=== PATIENT | female | born 1990 | race Caucasian/White ===

== ENCOUNTER 2019-03-05 13:51 | Emergency (ER) | payer BC, SELFPAY ==
[2019-03-05 13:52] VITALS: BP 137/75; PULSE 89; RESP 16; TEMP 36.1; O2SAT 96; BMI 32.9
--- NOTE | 2019-03-05 14:09 | CT_ITS ---
STUDY: CT BRAIN WITHOUT CONTRAST REASON FOR EXAM: Female, 28 years old. RADIATION DOSAGE (If Supplied By Facility): CTDIvol = ( 44.99 ) mGy, DLP = ( 745.49 ) mGycm TECHNIQUE: Transaxial CT imaging of the brain was performed without administration of intravenous contrast material. Individualized dose optimization techniques were used for this CT. COMPARISON: No relevant priors. FINDINGS: Normal soft tissue structures. Normal calvarium. Normal size ventricles and extra-axial spaces for the patient's age. Normal white matter tracts of the cerebral hemispheres. Normal basal ganglia and thalami. Normal brainstem. Normal cerebellum. There is no intracranial hemorrhage. There are no findings of an acute ischemic infarction. Normal visualized paranasal sinuses. CT/Brain/Head without Contrast IMPRESSION: Normal unenhanced CT scan of the brain. Electronically Signed: Garrett Norwood, at 14:43 EST Tel , Service support ,
--- NOTE | 2019-03-05 14:09 | EKG12_ITS ---
Test Reason : SYNCOPE Blood Pressure : / mmHG Vent. Rate : 073 BPM Atrial Rate : 073 BPM P-R Int : 170 ms QRS Dur : 088 ms QT Int : 390 ms P-R-T Axes : 030 022 007 degrees QTc Int : 429 ms Normal sinus rhythm Normal ECG Confirmed by DANISH MANZANARES, CALEB ([id number]), rewrite editor STEPHANIE CHOW ([id number]) on 03/07/2019 10:58:39 AM Referred By: SASHA Confirmed By:CALEB PENG MD
--- NOTE | 2019-03-05 14:20 | RAD_ITS ---
STUDY: X-RAY CHEST REASON FOR EXAM: Female, 28 years old. TECHNIQUE: COMPARISON: None. FINDINGS: The lungs are clear and expanded. There is no demonstrated pleural abnormality. Normal size heart. Normal mediastinum and rock. Normal visualized pulmonary arteries. Normal visualized aortic arch and descending thoracic aorta. Normal visualized thoracic spine. Normal visualized ribs, clavicles, and shoulders. There is no demonstrated abnormality of the visualized soft tissue structures of the upper abdomen. RAD/Chest 1 View (Portable) IMPRESSION: Normal x-ray examination of the chest. Electronically Signed: Garrett Norwood, at 14:35 EST Tel , Service support ,
[2019-03-05 14:24] VITALS: O2SAT 99
[2019-03-05 14:27] LABS: Absolute Lymphocyte Count 2.41 X10^3/uL (0.83-4.51); Absolute Neutrophil Count 3.8 X10^3/uL (2.0-7.7); Basophil# 0.07 X10^3/uL; Eosinophil# 0.06 X10^3/uL; Eosinophils% 0.9 % (0-5); Hematocrit 40.3 % (37-47); Hemoglobin 13.1 g/dL (12.0-15.0); Lymphocyte # 2.41 X10^3/ul (4.0); Lymphocyte % 35.2 % (19-41); Mean Corp Hgb Conc 32.5 g/dL (32-36); Mean Corpuscular Hgb 28.2 pg (27.0-32.0); Mean Corpuscular Volume 86.7 fL (81-99); Mean Platelet Vol. 8.7 fl (6.2-12.0); Monocyte# 0.49 X10^3/uL; Monocyte% 7.2 % (0-10); NRBC Flagged by Analyzer 0 % (0-5); Neutrophil # 3.79 X10^3/uL (2.7-7.7); Neutrophil % 55.4 % (47-70); Platelet Count 345 K/mm3 (150-450); RBC Distribution Width CV 12.2 % (11.6-14.6); RBC Distribution Width SD 38.6 fl (35.1-43.9); Red Blood Count 4.65 M/mm3 (4.2-5.4); White Blood Count 6.8 K/mm3 (4.4-11.0)
[2019-03-05 14:47] LABS: Anion Gap 7 (5-15); BUN 7 mg/dL (7-18); BUN/Creat Ratio 10.2 RATIO (10-20); Calcium,Total 8.9 mg/dL (8.5-10.1); Chloride 107 mmol/L (98-107); Creatinine, Serum 0.68 mg/dL (0.55-1.02); EST Glomerular Filtration Rate 110 mL/min (>60); Est Glom Filt Rate - Afr Amer 133 mL/min (>60); Estimated Creatinine Clearance 99.16 ml/min; Glucose 92 mg/dL (74-106); Sodium Level 141 mmol/L (136-145)
[2019-03-05 14:54] LABS: Internal QC Validated? YES +Cl - CLEAR BKGD; Pregnancy, Serum, hCG Quali. NEGATIVE Negative
[2019-03-05 14:57] LABS: Alcohol, Blood (Medical)-Serum < 3.0 mg/dL
--- NOTE | 2019-03-05 15:17 | ED.VISSUMM ---
- ER Visit Summary Date of Service: 03/05/19 Chief Complaint: Seizure History of Present Illness: The patient is a 28 F who presents for a possible seizure. The patient was at work and she felt like she was going to black out. She started shaking and sat down. She remembers waking up in the break room. There is no one here who witnessed the event. She says she has a history of seizures. Her doctor stopped her medicines years ago, and she has not had any issues. She denies any inciting events, except for increased stress recently. She denies any injuries or other associated complications. Physical Examination: Afebrile and vital signs unremarkable. Head and neck atraumatic. Heart regular. Lungs clear. Abdomen soft. Skin appears normal. Cranial nerves grossly intact. Normal strength and sensation. Test Results: EKG showed sinus rhythm at a rate of 73. CBC and BMP unremarkable. Troponin normal. test negative. Alcohol negative. Chest x-ray normal. CT brain normal. Emergency Department Course and Treatment: Patient had no further events in the ED. 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 Work-up was unremarkable. Given that the patient has a history of seizures, and has symptoms similar to her prior seizure, we will put her on seizure precautions and start Keppra twice daily. She believes she might have been on that before. I do not believe she needs further diagnostic testing or hospitalization based on her history and current findings and symptoms. She does not have a neurologist currently. We do not have neurology hearing healthcare practitioner at this time. She was requesting a follow-up in the [facility], and was referred to Dr. Sherice Us at [phone]. Seizure precautions. Work note. Return for any new or worsening issues. Treatment Plan: As above Disposition: Discharge Impression: 1. Seizure This note was generated with [employer] software. It may contain incorrect words, spelling, and punctuation that were not noted in review of the chart prior to signing ED Disposition - Plan for ED Patient: Referrals: Care Physician,No Primary [Primary Care Provider] -
--- NOTE | 2019-03-05 15:21 | DCINST.ED_ITS ---
ED Disposition - Plan for ED Patient: Instructions: SEIZURE, Recurrent [Adult] Prescriptions: Levetiracetam [Keppra] 500 mg PO BID #60 tab Prescription Printed Additional Instructions: Follow-up with Dr. Sherice Us in [facility] call for appointment [phone]. No driving or operating heavy machinery. Do not take part in any activities where you could hurt yourself or others.
[2019-03-05 15:24] LABS: Amphetamine Urine VISTA NEGATIVE (<1000 ng/mL); Barbiturate Urine VISTA NEGATIVE (< 200 ng/mL); Benzodiazepine Urine VISTA NEGATIVE (< 200 ng/mL); Cocaine Urine VISTA NEGATIVE (< 300 ng/mL); Ecstacy Urine VISTA NEGATIVE (< 500 ng/mL); Methadone Urine VISTA NEGATIVE (< 300 ng/mL); PCP Urine VISTA NEGATIVE (< 25 ng/mL); THC Urine VISTA NEGATIVE (< 50 ng/mL); Vista UDS pH Range 7
[2019-03-05 15:33] VITALS: BP 130/90; PULSE 78; RESP 14; O2SAT 98
== END 2019-03-05 15:34 | disposition home or self-care (01) ==
LOC: ED 14:38
PROVIDERS: Emergency Provider Emergency Medicine
DX: R56.9 Unspecified convulsions (principal); R51 Headache; Z72.0 Tobacco use
CPT/HCPCS: 70450; 71045; 80048; 80307; 80320; 84484; 84703; 85025; 93005; 99284; G0480

== ENCOUNTER 2019-05-21 22:03 | Emergency (ER) | payer OTHER, SELFPAY ==
[2019-05-21 22:04] VITALS: BP 142/93; PULSE 89; RESP 16; TEMP 37.2; O2SAT 99; BMI 35.3
--- NOTE | 2019-05-21 22:25 | ED.VISSUMM ---
- ER Visit Summary Date of Service: 05/21/19 Chief Complaint: Seizure History of Present Illness: The patient is a 28 F who presents after having a seizure at work. She felt 1 coming on. She then blacked out does not remember what happened. She has had 2 in the past week and 3 recently. She is on no medications for it at home. She was on medications as a child but none recently. She denies any recent illnesses. She did not eat today but had 2 monster energy drinks today. Currently she feels back to baseline except for a headache. Physical Examination: Vital signs reviewed. HEENT exam unremarkable. Heart is regular rate and rhythm without murmurs. Lungs are clear to auscultation. Abdomen is soft and nontender. Extremities reveal no edema. Skin exam normal. Neurologic exam normal. Test Results: None performed Emergency Department Course and Treatment: The patient feels back to her normal state of health. She has had a couple of seizures this week. I went over seizure precautions including no driving. She tried to contact a neurologist but they did not set her insurance. I reviewed her insurance and was able to find somebody in her network. I gave her the follow-up information for them. Treatment Plan: [] Disposition: Discharge Impression: Seizure This note was generated with [employer] dictation software. It may contain incorrect words, spelling, and punctuation that were not noted in review of the chart prior to signing ED Disposition - Plan for ED Patient: Disposition: Home or Assisted Living Instructions: SEIZURE, Recurrent [Adult] Referrals: [facility] Doctor,Out of [Primary Care Provider] - Farzaneh Asher MD [NON-STAFF] -
[2019-05-21] MEDS: Acetaminophen 500 MG Tablet 1000 MG PO (22:39)
[2019-05-21 22:49] VITALS: RESP 16
== END 2019-05-21 22:49 | disposition home or self-care (01) ==
LOC: ED 22:32
PROVIDERS: Emergency Provider Emergency Medicine; PCP General Practice
DX: R56.9 Unspecified convulsions (principal); R51 Headache; F31.9 Bipolar disorder, unspecified
CPT/HCPCS: 99283

== ENCOUNTER 2019-11-25 19:53 | Emergency (ER) | payer OTHER, SELFPAY ==
[2019-11-25 19:54] VITALS: BP 158/98; PULSE 104; RESP 15; TEMP 36.4; O2SAT 98; BMI 33.9
--- NOTE | 2019-11-25 20:05 | ED.VIS.UPPEX ---
History of Present Illness Chief Complaint: Upper Extremity Injury Informant: Patient Occurred: Today Mechanism/Context: Injury Context: Sudden Onset Timing: Continuous Quality of Pain: Aching Location: R hand, worse at 4th-5th MCPJs Current Severity: Moderate Maximum Severity: Severe Worsened by: trying to move Relieved by: remaining still, ice pack Associated Symptoms: Loss of Funtion - small finger. Negative for: Parasthesia, Weakness Narrative: [id number] female states that she punched a car and had sudden onset pain in her right hand. Past Medical History - Allergies and Home Meds Allergies/Adverse Reactions: Allergies cinnamon Allergy (Verified 11/25/19 19:56) Swelling lidocaine Allergy (Verified 11/25/19 19:56) Other Primary Care Physician: Vale Watts MD [Primary Care Provider] - Past Medical History: None Lives: With Family Smoking Status: Never smoker Review of Systems General: Denies: Chills, Fever, Sweats Musculoskeletal: Reports: Extremity Pain Skin: Denies: Rash, Wounds Neurological: Denies: Headache, Weakness, Numbness Physical Exam Vital Signs/Narrative: Vital Signs Temp Pulse Resp BP Pulse Ox 11/25/19 19:54 97.5 F L 104 H 15 158/98 H 98 General: Well nourished, Well developed, - - Well-appearing no distress Head: Normocephalic, Atraumatic Extremeties: Tender mainly at the right fourth and fifth metacarpophalangeal joints, no deformities, but limited evaluation of rotational deformity of the fifth digit since she is unable to flex it at all. Limited flexion of the fourth but it appears to flex without deformity. Good range of motion throughout everywhere else including wrist. Skin: Trauma - Contusion with erythema focused around the right fourth and fifth MCPJ's. Skin intact. Neurological: Alert, Oriented x3, Cranial nerves II-XII grossly intact, Normal Strength, Normal Sensation, Normal Gait Psychological: Normal affect, Normal Mood Diagnostic/Tx/Re-eval Clinical Impression(s) from Imaging Studies Hand X-Ray 11/25/19 20:07 IMPRESSION: Within normal limits x-ray examination of the hand. Electronically Signed: Fadia Bella MD at 20:31 EDT Tel , Service support , - Medical Decision Making X-rays unremarkable. She was given an Vinod wrap and anti-inflammatory, advised to follow-up as needed if her function does not return to normal. ED Disposition - Plan for ED Patient: Disposition: Home or Assisted Living Diagnosis: Contusion of right hand Instructions: ED HAND CONTUSION Referrals: Vale Watts MD [Primary Care Provider] - 1 Week if not improving
--- NOTE | 2019-11-25 20:07 | RAD_ITS ---
STUDY: X-RAY - RIGHT HAND REASON FOR EXAM: Female, 29 years old. Pain after punching a car, limited range of motion TECHNIQUE: 3 view(s) of the hand. COMPARISON: None. FINDINGS: Normal radiocarpal articulation. Normal distal radioulnar joint. Normal visualized carpal bones. Normal carpal articulations Normal carpometacarpal articulation of the thumb. Normal second through fifth carpometacarpal joints. Normal metacarpi. Normal metacarpophalangeal joint of the thumb. Normal interphalangeal joint of the thumb. Normal proximal and distal phalanges of the thumb. Normal metacarpophalangeal joints of the second through fifth fingers. Normal proximal and distal interphalangeal joints of the second through fifth fingers. Normal phalanges of the second through fifth fingers. The soft tissue structures are unremarkable. RAD/Hand Min 3 Views IMPRESSION: Within normal limits x-ray examination of the hand. Electronically Signed: Fadia Bella MD at 20:31 EDT Tel , Service support ,
[2019-11-25 20:10] VITALS: BP 158/98; PULSE 99; RESP 16; TEMP 36.3; O2SAT 98; BMI 32.8
== END 2019-11-25 21:09 | disposition home or self-care (01) ==
PROVIDERS: Emergency Provider Emergency Medicine; PCP General Practice
DX: S60.221A Contusion of right hand, initial encounter (principal); W22.8XXA Striking against or struck by other objects, initial encounter; Y93.9 Activity, unspecified; Y92.89 Other specified places as the place of occurrence of the external cause; Y99.9 Unspecified external cause status
CPT/HCPCS: 73130; 99282

== ENCOUNTER 2020-01-02 17:30 | Emergency (ER) | payer OTHER, SELFPAY ==
[2020-01-02 17:31] VITALS: BP 135/86; PULSE 80; RESP 16; TEMP 36.4; O2SAT 99; BMI 33.6
--- NOTE | 2020-01-02 18:22 | ED.VIS.GEN ---
History of Present Illness Chief Complaint: Seizure Informant: Patient Narrative: Patient is a 29-year-old female who presents to the emergency department for seizure. She states she has had 3 over the past 4 days. She had a 3 to 5-minute episode today witnessed by her boyfriend. She states that she had a seizure disorder when she was 10. Over the past year she started to have them recur. She does not follow with a neurologist. She is not on any antiepileptic medications. She states that she just cannot take it anymore. She denies any symptoms at this time. No headache or vision changes. No chest pain or shortness of breath. She has any abdominal pain or nausea/vomiting. He states she can feel them coming on and lowered himself to the ground. Denies any injury. She states she can hear during these episodes but cannot ever respond. Boyfriend states she has some generalized shaking and in turn very pale. She is concerned she has a UTI as she was seen here a few weeks ago for abdominal pain and diagnosed with UTI. She never got the antibiotic filled. She is not having any symptoms at this time. She denies any alcohol or drug use. Past Medical History - Allergies and Home Meds Allergies/Adverse Reactions: Allergies cinnamon Allergy (Verified 11/25/19 19:56) Swelling lidocaine Allergy (Verified 11/25/19 19:56) Other epinephrine Adverse Reaction (Verified 01/02/20 17:30) NEEDS FOLLOW-UP Primary Care Physician: Vale Watts MD [Primary Care Provider] - Prior records reviewed: Yes Smoking Status: Never smoker Review of Systems All systems negative except as indicated General: Denies: Chills, Fever, Sweats Eyes: Denies: Visual changes - bilaterally, Diplopia ENT: Denies: Rhinorrhea, Sore throat Cardiovascular: Denies: Chest pain, Palpitations Respiratory: Denies: Dyspnea, Cough, Dyspnea on exertion Gastrointestinal: Denies: Abdominal pain, Nausea, Vomiting, Diarrhea Genitourinary: Denies: Dysuria, Hematuria, Frequency Musculoskeletal: Denies: Back pain, Extremity Pain Skin: Denies: Rash, Wounds Neurological: Denies: Headache, Weakness, Numbness Physical Exam Vital Signs/Narrative: Vital Signs Temp Pulse Resp BP Pulse Ox 01/02/20 17:31 97.6 F L 80 16 135/86 H 99 Inital Vital Signs reviewed: Yes General: Well nourished, Well developed, No Acute Distress Head: Normocephalic, Atraumatic Eyes: Perrl, EOMI ENT: Moist mucous membranes, No rhinorrhea Neck: Supple, Nontender Cardiovascular: Regular rate, Regular rhythm, No murmurs Respiratory: No distress, CTA bilaterally, Chest nontender Abdomen: Soft, Nontender, Nondistended, Normal bowel sounds Back: Nontender, Normal Inspection Extremities: Nontender, No edema Skin: Normal color, No rash Neurological: Alert, Oriented x3, Cranial nerves II-XII grossly intact, Normal Strength, Normal Sensation Psychological: Normal affect, Normal Mood Diagnostic/Tx/Re-eval - Medical Decision Making Patient presents to the ED for seizure disorder. She wants to be restarted on medications but cannot recall what she was on previously. She does not have a neurologist. Physical exam is benign. Vital signs within normal limits. Will check basic lab work at this time. Lab work-up did not reveal a significant acute abnormality. We did do a tele-neurologist consult as she does not have a neurologist currently. They recommend started her on Keppra but she does need a full neurology work-up. She was supposed to have a full work-up previously but she states her insurance did not cover it. Social work did find multiple neurologists in network and she was given a list for follow-up. She states she will follow-up with Dr. Asher. There was some concern that she is having pseudoseizures per the neurologist that did the evaluation. She will need a full EEG. Apparently this can be done as an outpatient now. Warning signs and symptoms which to return to the ED were reviewed with her. She understands that she is not to drive until cleared by the neurologist. At this time patient discharged home in stable condition. ED Disposition - Plan for ED Patient: Disposition: Home or Assisted Living Diagnosis: Seizure disorder Instructions: ED Seizure Recurrent Adult Prescriptions: Levetiracetam [Keppra] 500 mg PO BID 30 Days #60 tab Transmission Status: Received by [id number] [facility] Referrals: Vale Watts MD [Primary Care Provider] - Additional Instructions: Dr. Farzaneh Asher. Please follow up as soon as possible. Contact information given by social media assistant.
[2020-01-02 18:49] LABS: Bacteria 0 SEEN /hpf (None Seen); Mucous, Urine 0 SEEN /hpf (<or=2+)
--- NOTE | 2020-01-02 18:53 | TELEMED_ITS ---
[facility] Tele[facility] has confirmed receipt of a request for visit. This document confirms receipt of the order initiating the consult. To find the results of the consultation, please view the patient's reports for the scanned Telemed Consult.
[2020-01-02 18:54] LABS: Absolute Lymphocyte Count 2.44 X10^3/uL (0.83-4.51); Absolute Neutrophil Count 5.7 X10^3/uL (2.0-7.7); Basophil# 0.06 X10^3/uL; Basophil% 0.7 % (0-1); Eosinophil# 0.07 X10^3/uL; Eosinophils% 0.8 % (0-5); Hematocrit 39.3 % (37-47); Hemoglobin 12.8 g/dL (12.0-15.0); Internal QC Validated? YES +Cl - CLEAR BKGD; Lymphocyte # 2.44 X10^3/ul (4.0); Lymphocyte % 27.2 % (19-41); Mean Corp Hgb Conc 32.6 g/dL (32-36); Mean Corpuscular Hgb 28.5 pg (27.0-32.0); Mean Corpuscular Volume 87.5 fL (81-99); Mean Platelet Vol. 9.2 fl (6.2-12.0); Monocyte# 0.71 X10^3/uL; Monocyte% 7.9 % (0-10); NRBC Flagged by Analyzer 0 % (0-5); Neutrophil # 5.67 X10^3/uL (2.7-7.7); Neutrophil % 63.1 % (47-70); Platelet Count 373 K/mm3 (150-450); Pregnancy, Urine Negative Negative; RBC Distribution Width CV 12.6 % (11.6-14.6); RBC Distribution Width SD 40.2 fl (35.1-43.9); Red Blood Count 4.49 M/mm3 (4.2-5.4)
[2020-01-02 19:07] LABS: ALB/GLOB Ratio 0.9 RATIO (0.9-2.4); AST(SGOT) 12 U/L (15-37); Alanine Aminotransfer ALT/SGPT 21 U/L (13-56); Albumin, Serum 3.7 g/dL (3.2-5.0); Alkaline Phosphatase 67 U/L (45-117); Anion Gap 5 (5-15); BUN 11 mg/dL (7-18); BUN/Creat Ratio 14.3 RATIO (10-20); Calcium,Total 8.9 mg/dL (8.5-10.1); Chloride 110 mmol/L (98-107); Creatinine, Serum 0.77 mg/dL (0.55-1.02); EST Glomerular Filtration Rate 95 mL/min (>60); Est Glom Filt Rate - Afr Amer 115 mL/min (>60); Globulin 4.2 g/dL (2.2-4.2); Glucose 92 mg/dL (74-106); Potassium 3.6 mmol/L (3.5-5.1); Protein, Total 7.9 g/dL (6.4-8.2); Sodium Level 142 mmol/L (136-145)
[2020-01-02 19:10] LABS: Color, Urine Yellow (Yellow); Glucose, Dipstick Normal (Normal); Ketone-Dipstick Negative (Negative); Leukocyte Esterase-Dipstick 25 /ul (Negative); Nitrite-Dipstick Negative (Negative); Occult Blood-Urine 150 /ul (Negative); Protein-Dipstick Negative (Negative); Specific Gravity, Urine 1.015 (1.002-1.030); Urine Bilirubin Dipstick Negative (Negative); Urine Clarity Sl. Cloudy (Clear); Urine Urobilinogen Normal (Normal)
[2020-01-02 19:11] LABS: Amorphous Sediment 1+; Red Blood Cells-Urine 0-5 SEEN /hpf (0-5); Squamous Epithelial Cells - UA 0-5 SEEN /hpf (5-10); White Blood Cells 0-5 SEEN /hpf (0-5)
[2020-01-02 19:18] LABS: Amphetamine Urine VISTA NEGATIVE (<1000 ng/mL); Barbiturate Urine VISTA NEGATIVE (< 200 ng/mL); Benzodiazepine Urine VISTA NEGATIVE (< 200 ng/mL); Cocaine Urine VISTA NEGATIVE (< 300 ng/mL); Ecstacy Urine VISTA NEGATIVE (< 500 ng/mL); Methadone Urine VISTA NEGATIVE (< 300 ng/mL); PCP Urine VISTA NEGATIVE (< 25 ng/mL); THC Urine VISTA NEGATIVE (< 50 ng/mL); Vista UDS pH Range 6
--- NOTE | 2020-01-02 20:26 | ED.RN ---
[facility] TELEHEALTH NEUROLOGIST ON-LINE WITH PATIENT NOW.
--- NOTE | 2020-01-02 21:11 | CM.ED ---
Social Work Consult: Resources Informant: Dr. Crandall Patient with new Seizure diagnosis and needs to follow up with Neurologist. This marriage and family social worker able to look up patient insurance provider information and provide patient with list of Neurologist that are in-network with patient insurance. Dr. Crandall making referral to Dr. Asher in [place] as patient reports to be familiar with this doctor due to family history. Patient voicing no further needs. Patient reports to have transportation to home. Mandy Klein MSW, KARLA
[2020-01-02] MEDS: levETIRAcetam 500 MG Tablet PO (21:30)
[2020-01-02 21:31] VITALS: BP 140/78; PULSE 82; RESP 18; O2SAT 100
== END 2020-01-02 21:32 | disposition home or self-care (01) ==
PROVIDERS: Emergency Provider Emergency Medicine; PCP General Practice
DX: G40.909 Epilepsy, unspecified, not intractable, without status epilepticus (principal)
CPT/HCPCS: 80053; 80307; 81001; 81025; 85025; 99283; A4216